=== PATIENT | female | born 1985 | race Hispanic/Latino ===

== ENCOUNTER 2018-06-15 20:44 | Outpatient (CLI) | payer OTHER ==
[~2018-06-15] VITALS: Ht 157.5 cm; Wt 94.8 kg
[~2018-06-15 20:44] MED LIST: Motrin PO; NATALCARE RX1 TABLET PO; NOHOMEMEDS; Percocet 5/325,Endoc PO
[2018-06-15] MEDS ORDERED: PREDNISONE10 MG PO (21:32)
[2018-06-15] MEDS ORDERED: PULMICORT0.25 MG/1 IH (21:33)
[2018-06-15] MEDS ORDERED: VENTOLIN HFA18 GM IH (21:34)
[2018-06-15 21:35] VITALS: BP 115/64
== END 2018-06-15 22:52 | disposition home or self-care (01) ==
LOC: LDRP-OP 20:44 → 2WEST 20:45
DX: O47.03 False labor before 37 completed weeks of gestation, third trimester (principal); Z3A.28 28 weeks gestation of pregnancy
CPT/HCPCS: 59025; G0378